=== PATIENT | male | born 1950 | race Caucasian/White ===

== ENCOUNTER → 2018-02-16 | Outpatient (CLI) | payer MEDICARE, OTHER | END | disposition home or self-care (01) | LOC: CFH 08:57 | PROVIDERS: ATTEND Internal Medicine Cardiovascular Disease | DX: I08.1 Rheumatic disorders of both mitral and tricuspid valves (principal); Z87.891 Personal history of nicotine dependence | CPT/HCPCS: 93306 ==

== ENCOUNTER 2018-05-12 09:33 | Day surgery (SDC) | payer MEDICARE ==
[~2018-05-12] VITALS: Ht 177.8 cm; Wt 85.0 kg
[2018-05-12 10:13] VITALS: BP 94/73
[2018-05-12] MEDS ORDERED: Magnesium PO (10:21)
[2018-05-12] MEDS ORDERED: VITA400C43 PO (10:21)
[2018-05-12] MEDS ORDERED: RIVA20TA PO (10:21)
[2018-05-12] MEDS ORDERED: VITA1TAB19 PO (10:21)
[2018-05-12] MEDS ORDERED: FURO-92 PO (10:21)
[2018-05-12] MEDS ORDERED: METO-93 PO (10:21)
[2018-05-12] MEDS ORDERED: Potassium PO (10:21)
[2018-05-12] MEDS ORDERED: MULT-658 PO (10:21)
[2018-05-12] MEDS ORDERED: SPIR50TA4 PO (10:21)
[2018-05-12] MEDS ORDERED: VIT1CAPS42 PO (10:21)
[2018-05-12] MEDS ORDERED: CHOL2000 PO (10:21)
[2018-05-12 11:00] LABS: ANION GAP 7 mmol/L (5-15); CALCIUM 8.2 mg/dL (8.5-10.1); CHLORIDE 106 mmol/L (98-107); CREATININE 0.97 mg/dL (0.7-1.3)
[2018-05-12 11:01] LABS: MEAN CORPUSCULAR HEMOGLOBIN 38.4 pg (27.5-34.5); MEAN CORPUSCULAR HGB CONC 34.6 g/dL (33.2-36.2); RED BLOOD COUNT 3.76 x10^6/uL (4.38-5.82); RED CELL DISTRIBUTION WIDTH 14.2 % (9.4-14.8)
[2018-05-12 11:17] LABS: BASOPHILS # (AUTO) 0.03 x10^3/uL (0-0.1); BASOPHILS % (AUTO) 1 % (0-1); EOSINOPHILS # (AUTO) 0.08 x10^3/uL (0-0.4); EOSINOPHILS % (AUTO) 2 % (1-7); LYMPHOCYTES # (AUTO) 0.85 x10^3/uL (1-3.4); LYMPHOCYTES % (AUTO) 23 % (22-44); MD MORPH REVIEW ONLY; MEAN PLATELET VOLUME 9.4 fL (7.4-10.4); MONOCYTES % (AUTO) 16 % (2-9); NEUTROPHILS # (AUTO) 2.12 x10^3/uL (1.8-6.8); NEUTROPHILS % (AUTO) 58 % (42-75); PLATELET COUNT 97 x10^3/uL (130-400)
[2018-05-12 11:18] LABS: <PLATELET ESTIMATE> DECREASED; ANISOCYTOSIS 1+; LARGE PLATELETS 1+; POLYCHROMASIA 1+
[2018-05-12] MEDS ORDERED: PROPOFOL 10 MG/ML, 20ML ONE (11:49)
== END 2018-05-12 13:30 | disposition home or self-care (01) ==
LOC: CACL 09:33
PROVIDERS: ATTEND Internal Medicine Cardiovascular Disease
DX: I48.0 Paroxysmal atrial fibrillation (principal); K74.60 Unspecified cirrhosis of liver
CPT/HCPCS: 36415; 80048; 85025; 92960; J2704

== ENCOUNTER 2018-09-06 01:46 | Emergency (ER) | payer MEDICARE ==
[~2018-09-06] VITALS: Ht 177.8 cm; Wt 85.0 kg
[~2018-09-06 01:46] MED LIST: CHOL2000 PO; FURO-92 PO; METO-93 PO; MULT-658 PO; Magnesium PO; Potassium PO; RIVA20TA PO; SPIR50TA4 PO; VIT1CAPS42 PO; VITA1TAB19 PO; VITA400C43 PO
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
[2018-09-06] MEDS ORDERED: LIDOCAINE 1%, 10ML INFIL ONE (02:00)
[2018-09-06] MEDS ORDERED: LIDOCAINE-MPF 1%, 5ML ONE (02:06)
--- NOTE | 2018-09-06 02:07 | NUR ---
REPORT FROM PK BALTAZAR. PT RESTING WITH OFFICER AT BEDSIDE. PT HAS NO NEEDS AT THIS TIME. CALL LIGHT IN REACH
[2018-09-06 03:30] VITALS: BP 115/74
--- NOTE | 2018-09-06 03:53 | NUR ---
Patient given discharge instructions and they have confirmed that they understand the instructions. Patient ambulatory with steady gait. Pt left with [facility]
== END 2018-09-06 03:55 | disposition home or self-care (01) ==
LOC: ED 03:50
DX: S01.511A Laceration without foreign body of lip, initial encounter (principal); S02.2XXA Fracture of nasal bones, initial encounter for closed fracture; I48.91 Unspecified atrial fibrillation; Z87.891 Personal history of nicotine dependence; W01.0XXA Fall on same level from slipping, tripping and stumbling without subsequent striking against object, initial encounter; Y93.89 Activity, other specified; Y92.410 Unspecified street and highway as the place of occurrence of the external cause; Y99.8 Other external cause status
CPT/HCPCS: 12051; 70450; 70486; 99284